=== PATIENT | male | born 1955 | race Caucasian/White ===

== ENCOUNTER → 2016-11-22 | Outpatient (CLI) | payer OTHER ==
[2016-11-22 09:44] LABS: MEAN CORPUSCULAR HEMOGLOBIN 31.6 pg (27.0-33.0); MEAN CORPUSCULAR HGB CONC 33.2 g/dl (32.0-36.5); MEAN CORPUSCULAR VOLUME 95.3 fl (80.0-96.0); RED CELL DISTRIBUTION WIDTH 12.6 % (11.5-14.5); WHITE BLOOD COUNT 4.9 K/mm3 (4.0-10.0)
[2016-11-22 10:36] LABS: ALBUMIN 3.2 GM/DL (3.2-5.2); ALBUMIN/GLOBULIN RATIO 0.73 (1.00-1.93); ALKALINE PHOSPHATASE 81 U/L (45-117); ALT/SGPT 23 U/L (12-78); ANION GAP 7 MEQ/L (8-16); AST/SGOT 17 U/L (15-37); BILIRUBIN,TOTAL 0.5 MG/DL (0.2-1.0); BLOOD UREA NITROGEN 11 MG/DL (7-18); CALCIUM LEVEL 8.7 MG/DL (8.8-10.2); CARBON DIOXIDE LEVEL 30 MEQ/L (21-32); CHLORIDE LEVEL 103 MEQ/L (98-107); CHOLESTEROL LEVEL 176 MG/DL (<200); CREATININE FOR GFR 0.96 MG/DL (0.70-1.30); GLOMERULAR FILTRATION RATE > 60.0 (>49); GLUCOSE, FASTING 108 MG/DL (80-110); POTASSIUM SERUM 4.4 MEQ/L (3.5-5.1); SODIUM LEVEL 140 MEQ/L (136-145); TOTAL PROTEIN 7.6 GM/DL (6.4-8.2); TRIGLYCERIDES LEVEL 117 MG/DL (<150)
== END ==
LOC: M WUC 08:22
PROVIDERS: ATTEND Family Medicine
DX: Z00.00 Encounter for general adult medical examination without abnormal findings (principal); N40.0 Benign prostatic hyperplasia without lower urinary tract symptoms

== ENCOUNTER → 2016-11-28 | Outpatient (CLI) | payer OTHER ==
--- NOTE | 2016-11-28 10:35 | REP ---
Chest two views HISTORY: Cough Comparison: 02/16/2011 The lungs are clear. The heart is normal in size. The pulmonary vasculature is normal in appearance. Degenerative change is present in the thoracic spine. IMPRESSION: No acute disease. Signed by Alec Herrera MD 11/28/2016 10:26 A
== END ==
LOC: M WUC 10:06
PROVIDERS: ATTEND Family Medicine
DX: R05 Cough (principal)

== ENCOUNTER → 2019-06-18 | Outpatient (REF) | payer MEDICARE ==
[2019-06-18 12:13] LABS: BLOOD UREA NITROGEN 19 MG/DL (7-18); CARBON DIOXIDE LEVEL 28 MEQ/L (21-32); CHLORIDE LEVEL 99 MEQ/L (98-107); CREATININE FOR GFR 1.19 MG/DL (0.70-1.30); GLOMERULAR FILTRATION RATE > 60.0 (>49); GLUCOSE, FASTING 176 MG/DL (70-100); POTASSIUM SERUM 4.5 MEQ/L (3.5-5.1); SODIUM LEVEL 134 MEQ/L (136-145)
[2019-06-18 12:57] LABS: HEMOGLOBIN A1c 8.1 %
== END ==
LOC: M LABDRAW1 09:30
PROVIDERS: ATTEND Family Medicine
DX: R81 Glycosuria (principal)

== ENCOUNTER → 2019-07-08 | Outpatient (CLI) | payer MEDICARE, BC ==
[2019-07-08 14:34] LABS: BACTERIA, URINE AUTO NEGATIVE (NEGATIVE); MUCUS, URINE SMALL (NEGATIVE); RBC, URINE AUTO 1 /HPF (0-3); SQUAMOUS EPITHELIAL CELL UR AU 0 /HPF (0-6); WBC, URINE AUTO 1 /HPF (0-3)
[2019-07-11 00:07] LABS: PSA % FREE 22.2 % (.); PSA FREE 1.09 ng/mL; PSA TOTAL 4.9 ng/mL (0.0-4.0)
== END ==
LOC: M SMT 11:52
PROVIDERS: ATTEND Specialist
DX: N40.1 Benign prostatic hyperplasia with lower urinary tract symptoms (principal); Z28.21 Immunization not carried out because of patient refusal
CPT/HCPCS: 36415; 51798; 81015; 84154; 87086; G0463

== ENCOUNTER 2019-08-06 04:34 | Emergency (ER) | payer MEDICARE, BC ==
[~2019-08-06] VITALS: Ht 182.9 cm; Wt 116.4 kg
[2019-08-06] MEDS ORDERED: LISI20TA20 (05:16)
[2019-08-06] MEDS ORDERED: LATANOPROST (05:16)
[2019-08-06] MEDS ORDERED: ATOR1TAB21 (05:16)
[2019-08-06] MEDS ORDERED: METF-791 (05:16)
[2019-08-06] MEDS ORDERED: DUTA1CAP (05:16)
[2019-08-06] MEDS ORDERED: TAMS1CAP17 (05:16)
[2019-08-06 05:43] LABS: HEMATOCRIT 38.3 % (42.0-52.0); HEMOGLOBIN 12.4 g/dl (13.5-17.5); MEAN CORPUSCULAR HEMOGLOBIN 31.2 pg (27.0-33.0); MEAN CORPUSCULAR HGB CONC 32.4 g/dl (32.0-36.5); MEAN CORPUSCULAR VOLUME 96.5 fl (80.0-96.0); PLATELET COUNT, AUTOMATED 364 10^3/uL (150-450); RED BLOOD COUNT 3.97 10^6/uL (4.30-6.10); WHITE BLOOD COUNT 6.3 10^3/uL (4.0-10.0)
[2019-08-06 06:11] LABS: ERYTHROCYTE SEDIMENTATION RATE 44 mm/hr (0-20)
--- NOTE | 2019-08-06 13:10 | REP ---
MRI brain: 08/06/2019. Indication: Numbness and paresthesia. Comparison: None. Technique: Multiplanar short and long TR sequences of the brain were obtained without IV Gadolinium. Findings: There are no areas of restricted diffusion. There is no intracranial mass effect, hydrocephalus or significant hemorrhage. The large intracranial flow voids are unremarkable. There are a few small scattered foci of elevated T2 signal within the cerebral hemisphere white matter most consistent with chronic small vessel disease. The midline structures, and craniocervical junction are unremarkable. Impression: No acute intracranial process. 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 Electronically Signed by Paul Branham DO 08/06/2019 01:02 P
[2019-08-06 13:54] VITALS: BP 134/78
== END 2019-08-06 13:55 | disposition home or self-care (01) ==
LOC: M ED 04:34
DX: R20.2 Paresthesia of skin (principal); E11.9 Type 2 diabetes mellitus without complications; N40.0 Benign prostatic hyperplasia without lower urinary tract symptoms; Z79.899 Other long term (current) drug therapy; Z79.84 Long term (current) use of oral hypoglycemic drugs; Z88.0 Allergy status to penicillin

== ENCOUNTER → 2019-10-22 | Outpatient (REF) | payer MEDICARE, BC ==
[~2019-10-22] MED LIST: ATOR1TAB21; DUTA1CAP2; LATANOPROST; LISI20TA20; METF-791; TAMS1CAP17
[2019-10-22 14:15] LABS: BASO % 0.2 % (0.0-1.0); HEMOGLOBIN 12.3 g/dl (13.5-17.5); LYMPH # 1.5 10^3/uL (1.5-5.0); LYMPH % 16.5 % (24.0-44.0); MEAN CORPUSCULAR HGB CONC 32.4 g/dl (32.0-36.5); MEAN CORPUSCULAR VOLUME 95.7 fl (80.0-96.0); MONO # 0.6 10^3/uL (0.0-0.8); MONO % 6.2 % (0.0-5.0); NEUTROPHILS % 76.8 % (36.0-66.0); PLATELET COUNT, AUTOMATED 374 10^3/uL (150-450); RED BLOOD COUNT 3.97 10^6/uL (4.30-6.10); WHITE BLOOD COUNT 9.1 10^3/uL (4.0-10.0)
[2019-10-22 14:26] LABS: ALBUMIN 3.4 GM/DL (3.2-5.2); ALT/SGPT 22 U/L (12-78); BILIRUBIN,TOTAL 0.4 MG/DL (0.2-1.0); BLOOD UREA NITROGEN 24 MG/DL (7-18); CALCIUM LEVEL 9.1 MG/DL (8.8-10.2); CARBON DIOXIDE LEVEL 31 MEQ/L (21-32); CHLORIDE LEVEL 103 MEQ/L (98-107); CREATININE FOR GFR 1.03 MG/DL (0.70-1.30); GLOMERULAR FILTRATION RATE > 60.0 (>49); GLUCOSE, FASTING 99 MG/DL (70-100); POTASSIUM SERUM 4.2 MEQ/L (3.5-5.1); RHEUMATOID FACTOR QUANT < 10.0 IU/ML (<15.0); SODIUM LEVEL 136 MEQ/L (136-145); THYROID STIMULATING HORMONE 0.925 uIU/ML (0.358-3.740); TOTAL 25(OH) VITAMIN D 33.6 NG/ML (30.0-100.0); TOTAL PROTEIN 7.7 GM/DL (6.4-8.2); VITAMIN B12 LEVEL 553 PG/ML
[2019-10-22 14:30] LABS: HEMOGLOBIN A1c 6.4 %
[2019-10-22 14:33] LABS: ERYTHROCYTE SEDIMENTATION RATE 30 mm/hr (0-20)
[2019-10-23 09:07] LABS: ALBUMIN 3.81 GM/DL (3.29-5.55); ALBUMIN % 49.5 % (55.8-66.1); ALPHA-1-GLOBULIN % 4.5 % (2.9-4.9); ALPHA-1-GLOBULINS 0.35 GM/DL (0.17-0.41); ALPHA-2-GLOBULINS 0.75 GM/DL (0.42-0.99); ALPHA-2-GLOBULINS % 9.8 % (7.1-11.8); BETA-1-GLOBULINS 0.42 GM/DL (0.28-0.60); BETA-1-GLOBULINS % 5.5 % (4.7-7.2); BETA-2-GLOBULINS 0.27 GM/DL (0.19-0.55); BETA-2-GLOBULINS % 3.5 % (3.2-6.5); GAMMA GLOBULIN % 27.2 % (11.1-18.8); GAMMA GLOBULINS 2.09 GM/DL (0.65-1.58)
== END ==
LOC: M LABDRAW1 13:11
PROVIDERS: ATTEND Psychiatry & Neurology Neurology
DX: G62.9 Polyneuropathy, unspecified (principal); E11.9 Type 2 diabetes mellitus without complications; Z79.899 Other long term (current) drug therapy

== ENCOUNTER → 2019-10-22 | Outpatient (REF) | payer MEDICARE, BC ==
[2019-10-22 14:17] LABS: CHOLESTEROL RISK RATIO 2.525 (<5)
== END ==
LOC: M LABDRAW1 13:14
PROVIDERS: ATTEND Family Medicine
DX: E11.9 Type 2 diabetes mellitus without complications (principal)

== ENCOUNTER 2019-10-29 03:47 | Emergency (ER) | payer MEDICARE, BC ==
[~2019-10-29] VITALS: Ht 182.9 cm; Wt 110.0 kg
[2019-10-29 03:47] VITALS: BP 136/76
[2019-10-29] MEDS ORDERED: methylPREDNISolone INJ 125 MG/2 ML VIAL (J2930) IM ONE (04:15)
[2019-10-29] MEDS ORDERED: PRED20TA PO (04:19)
== END 2019-10-29 05:04 | disposition home or self-care (01) ==
LOC: M ED 03:47
DX: R22.0 Localized swelling, mass and lump, head (principal); T78.3XXA Angioneurotic edema, initial encounter; X58.XXXA Exposure to other specified factors, initial encounter; Y92.89 Other specified places as the place of occurrence of the external cause; E11.9 Type 2 diabetes mellitus without complications; I10 Essential (primary) hypertension; E78.5 Hyperlipidemia, unspecified; N40.0 Benign prostatic hyperplasia without lower urinary tract symptoms; Z79.899 Other long term (current) drug therapy; Z79.84 Long term (current) use of oral hypoglycemic drugs; Z88.0 Allergy status to penicillin; Z88.8 Allergy status to other drugs, medicaments and biological substances
CPT/HCPCS: 96372; 99282; J2930

== ENCOUNTER → 2020-01-09 | Outpatient (CLI) | payer MEDICARE, BC ==
[~2020-01-09] MED LIST changes: -METF-791; +METF-838; +PRED20TA PO
[2020-01-10 14:16] LABS: PSA TOTAL 1.5 ng/mL (0.0-4.0)
== END ==
LOC: M WUC 10:51
PROVIDERS: ATTEND Specialist
DX: R97.20 Elevated prostate specific antigen [PSA] (principal)

== ENCOUNTER → 2020-02-04 | Outpatient (CLI) | payer MEDICARE, BC ==
[~2020-02-04] MED LIST changes: +ISOVUE-370 76% 100ML VIAL As Ordered ONE
--- NOTE | 2020-02-04 16:34 | REPVR ---
PROCEDURE INFORMATION: Exam: CT Lumbar Spine With Contrast Exam date and time: 02/04/2020 3:15 PM Age: 64 years old Clinical indication: Other: Dysplasia; Additional info: Lumbar fibrous dysplasia TECHNIQUE: Imaging protocol: Computed tomography images of the lumbar spine with intravenous contrast. Radiation optimization: All CT scans at this facility use at least one of these dose optimization techniques: automated exposure control; mA and/or kV adjustment per patient size (includes targeted exams where dose is matched to clinical indication); or iterative reconstruction. Contrast material: ISOVUE 370; Contrast volume: 100 ml; Contrast route: IV; COMPARISON: MRI-Spine, L.S. without con 10/02/2013 7:39 AM FINDINGS: Vertebrae: Expansile, hypodense lesion of the left L3 pedicle extending into the articular pillar and transverse process. There are areas of cortical dehiscence. No gross evidence of an adjacent soft tissue component. No correlative lesion is identified on the MRI lumbar spine of 10/02/2013. Differential considerations are metastasis, myelomatous lesion or giant cell tumor. There is a 6 mm lucent lesion in the left posterior aspect of L1. A 3 mm lucent lesion in the left aspect of T12. No high-grade disc height loss. Mild posterior disc height loss with endplate osteophytic ridging at L5-S1. There is mild lower lumbar prevertebral spondylosis. L1-L2: No significant disc protrusion. No severe spinal canal stenosis. No significant neural foraminal narrowing. L2-L3: No significant disc protrusion. No spinal canal stenosis. No neural foraminal narrowing. L3-L4: Mild facet arthropathy. No stenoses. L4-L5: Mild disc bulge as well as mild to moderate facet arthropathy and ligamentum flavum buckling. The central spinal canal remains patent. Lateral recess and neural foraminal stenoses are mild. L5-S1: Mild disc osteophyte complex and facet arthropathy. No stenoses. Mediastinum: Small hiatal hernia. Kidneys and ureters: The right kidney demonstrates an approximate 0.8 cm likely simple cyst. Vasculature: The aorta demonstrates atherosclerosis. No evidence of aortic aneurysm or dissection. Soft tissues: Unremarkable. IMPRESSION: Indeterminate, expansile lesion of the left L3 pedicle extending into the articular pillar and transverse process. This appears to be new since the prior MRI of 10/02/2013 concerning for neoplasm. Nuclear medicine bone scan is recommended for further evaluation. THIS REPORT CONTAINS FINDINGS THAT MAY BE CRITICAL TO PATIENT CARE. The findings were verbally communicated via telephone conference with Dr. Ryder at 4:22 PM EDT on 02/04/2020. The patient had an MRI lumbar spine without contrast on 12/26/2019 and an MRI lumbar spine with contrast on 01/20/2020, the L3 lesion was demonstrated with enhancement on the postcontrast imaging. Electronically signed by: Bere Gonzalez On 02/04/2020 16:33:55 PM
== END ==
LOC: M RAD 14:44
PROVIDERS: ATTEND Psychiatry & Neurology Neurology
DX: M85.08 Fibrous dysplasia (monostotic), other site (principal)
CPT/HCPCS: 72132; Q9967

== ENCOUNTER → 2020-05-11 | Outpatient (CLI) | payer MEDICARE, BC ==
[~2020-05-11] MED LIST changes: -ATOR1TAB21; +ATOR1TAB21 PO; +DEXA4TA PO; -DUTA1CAP2; +DUTA1CAP2 PO; +EYEPROMISE RESTORE PO; -ISOVUE-370 76% 100ML VIAL As Ordered ONE; -LATANOPROST; +LATANOPROST OU; +LOSA100T5 PO; -METF-838; +METF-838 PO; +REVL20CA PO; +SYST1SOL OU; -TAMS1CAP17; +TAMS1CAP17 PO
--- NOTE | 2020-06-02 09:35 | REP ---
PET CT HISTORY: L3 plasmacytoma. COMPARISON: CT study lumbar spine 02/04/2020. MRI study lumbar spine 01/20/2020. MRI lumbar spine 10/02/2013. PET CT TECHNIQUE: 50 minutes following the intravenous injection of an 8.32 mCi dose of F18 fluorodeoxyglucose (FDG), PET CT 3D imaging is acquired from the skull base to the proximal thighs. PET CT FINDINGS: The expansile lesion in the left posterior elements of the L3 vertebral body shows mildly increased metabolic uptake. Maximum standard uptake value is 4.0. The lesion is unchanged from recent imaging studies. It is new from the 2014 study. No other metabolically active skeletal activity is seen. Head and neck soft tissues are unremarkable. No abnormal hypermetabolic uptake is seen in the thorax. Bilateral hip replacements are noted. No abnormal hypermetabolic uptake is seen in the abdomen or pelvis. No other bony lesion. IMPRESSION: Mildly increased metabolic activity in the expansile lesion in the left side of the L3 vertebral body, maximum standard uptake value (SUV) value 4.0. No other bony lesion is appreciated. Otherwise negative PET scintigraphy. MTDD
== END ==
LOC: M PLARAD 14:27
PROVIDERS: ATTEND Specialist
DX: C90.30 Solitary plasmacytoma not having achieved remission (principal)
CPT/HCPCS: 78815; A9552

== ENCOUNTER → 2020-07-15 | Outpatient (CLI) | payer MEDICARE, BC ==
--- NOTE | 2020-07-15 15:13 | RADONC.CN ---
Radiation Oncology Hx/Consult Radiation Oncology Consult Date of Service: Jul 15, 2020 Pt Identifier Tyrel Vences is a 64 year old male with recently diagnosed multiple myeloma discovered incidentally as he was undergoing workup for peripheral neuropathy he had a lumbar spine MRI showing a lesion in the left L3 transverse process which was biopsied and returned plasmacytoma. He underwent staging PET-CT revealing this as the only skeletal lesion. He is He had BM biopsy which showed 12% infiltration by plasma cells and high-risk cytogenetics. He is R-ISS stage II. He had a consultation at [facility] and has decided to proceed with systemic therapy (RKD) which will be administered by Dr. Crow here. He is seen today for consideration of RT to the L3 lesion. Diagnosis/Treatment History Oncologic History As above Interval History Feels generally well. Neuropathy is stable symmetrical involving fingers and toes. He notes some low back pain BL aching when he sits for long periods. This is a more recent development per his . He denies shooting pains in the legs, or aching in the buttocks with this. He has no motor weakness, bowel or bladder symptoms. He has preserved appetite and stable weight. No nausea or vomiting. 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 Prov:GEENA CROW MD 07/08/20 Reported Medications Propylene Glycol/Peg 400 (Systane 0.3-0.4% Eye Drops) 15 Ml Drops, 1 DROP OU QID, BOTTLE 07/09/20 [Eyepromise Restore] No Conflict Check, 2 CAP PO DAILY 07/09/20 Losartan/Hydrochlorothiazide (Losartan-Hctz 100-25 mg Tab) 1 Each Tablet, 1 TAB PO QPM 03/09/20 [Latanoprost] No Conflict Check, 1 DROP OU QHS 08/06/19 Atorvastatin Calcium (Atorvastatin Calcium) 20 Mg Tablet, 1 TAB PO DAILY 08/06/19 Dutasteride (Dutasteride) 0.5 Mg Capsule, 1 CAP PO DAILY 08/06/19 Metformin HCl (Metformin HCl ER) 500 Mg Tab.er.24h, 1 TAB PO QPM 08/06/19 Tamsulosin Hcl (Tamsulosin HCl) 0.4 Mg Capsule, 1 CAP PO DAILY 08/06/19 Review of Systems Constitutional: Denies: Chills, Fever, Night Sweats Eyes: Denies: Pain, Vision change HEENT: Denies: Head Aches, Dysphagia, Sore Throat Skin: Denies: Rash, Lesions, Bruising Pulmonary: Denies: Dyspnea, Cough Cardiovascular: Denies: Chest Pain, Palpitations, Edema Gastrointestinal: Denies: Nausea, Vomiting, Abdominal Pain, Diarrhea Genitourinary: Denies: Dysuria, Frequency, Incontinence Hematologic: Denies: Bruising, Petecchia, Enlarged Lymph Nodes Musculoskeletal: Reports: Back pain; Denies: Neck pain, Shoulder pain, Joint pain Neurological: Reports: Numbness; Denies: Weakness Psych: Reports: Mood Normal; Denies: Anxiety Vital Signs Ht 72" Wt 255 lb T 97.2 P 68 RR 18 BP 148/87 O2 98% Pain 0 Fatigue 1 General Exam: Positive: Alert, Cooperative, No Acute Distress Eye Exam: Positive: PERRLA, EOMI ENT EXAM: Positive: Mucous membr. moist/pink, Pharynx Normal Neck Exam: Negative: Thyromegaly, Lymphadenopathy Chest Exam: Positive: Normal air movement; Negative: Rales, Rhonchi, Wheezing Heart Exam: Positive: Rate Normal, Regular Rhythm Abdomen Exam: Positive: Soft; Negative: Tenderness, Mass Extremity Exam: Negative: Edema, Tenderness Skin Exam: Positive: Nl turgor and temperature; Negative: Rash Neuro Exam: Positive: Normal Gait, Normal Speech, Cranial Nerves 3-12 NL Psych Exam: Positive: Mental status NL, Mood NL, Memory Intact Other Physical Findings Musculoskeletal: There is no spinal or paraspinal tenderness at L3 level, there is point tenderness over the upper sacrum and SI joints BL Diagnostic and Laboratory Diagnostic Review Radiologic images, relevant labs and pathology reports were personally reviewed and discussed with Mr. Vences. Assessment and Plan Impression Mr. Vences is a 64 year old male with a history of multiple myeloma discovered incidentally as he was undergoing workup for peripheral neuropathy he had a lumbar spine MRI showing a lesion in the left L3 transverse process which was biopsied and returned plasmacytoma. He underwent staging PET-CT revealing this as the only skeletal lesion. He is He had BM biopsy which showed 12% infiltration by plasma cells and high-risk cytogenetics. He is R-ISS stage II. He had a consultation at [facility] and has decided to proceed with systemic therapy (RKD) which will be administered by Dr. Crow here. He is seen today for consideration of RT to the L3 lesion. Stage R-ISS stage II Performance Status ECOG 0 Plan We had an extensive discussion with Mr. Vences regarding the diagnosis at hand and available therapeutic options. He has antecedent exposure to pesticides early in his working life, which is a known risk factor for multiple myeloma. He is very well overall and about to embark on systemic therapy. I am not convinced that his low back pain is entirely due to the L3 lesion, however it is a possible contributor. We discussed that palliative radiation to the lesion (his only known skeletal lesion) would likely result in durable local control there and be prophylactic against any pathologic fracture in the future. It may also help with pain. It will not however alter his prognosis. Conversely, RT also will not interfere with his systemic therapy or prospects of SCT later on, and so is reasonable to consider at this time. He expressed desire to proceed with treatment. I would give 30 Gy in 10 fractions to the site. Possible side effects including fatigue and diarrhea were discussed with the patient, these would be mild and self limited. We discussed the logistics of receiving radiation therapy in detail including the need for a 1-time planning session. After discussing the risks, benefits and alternatives to radiation therapy, Mr. Vences was amenable to pursuing radiotherapy. All questions were answered to the patient's satisfaction. We instructed the patient that if there were any questions,concerns or changes in clinical status in the interim to contact us. Recommendations Palliative RT to the solitary L3 lesion 30 Gy in 10 fractions Simulation in the coming week JOY JORGENSEN MD Jul 15, 2020 15:13
== END ==
LOC: M ONCR 12:47
PROVIDERS: ATTEND General Practice
DX: C90.30 Solitary plasmacytoma not having achieved remission (principal)

== ENCOUNTER 2020-07-22 10:29 | Outpatient (RCR) | payer MEDICARE, BC ==
[2020-07-27] MEDS ORDERED: ACYC400T PO (08:14)
== END 2020-08-02 ==
LOC: M ONCR 10:29
PROVIDERS: ATTEND General Practice
DX: C90.00 Multiple myeloma not having achieved remission (principal)

== ENCOUNTER 2020-08-16 10:23 | Outpatient (RCR) | payer MEDICARE, BC ==
[~2020-08-16 10:23] MED LIST changes: +ACYC400T PO; +ALPR2TAB3 PO; +BACT800T5 PO
[2020-08-16] MEDS ORDERED: REVL20CA PO (10:33)
[2020-08-19] MEDS ORDERED: ACYC400T PO (12:24)
[2020-08-24] MEDS ORDERED: ACYC400T PO (09:32)
[2020-08-24] MEDS ORDERED: TRAZ-252 PO (14:55)
== END 2020-09-02 ==
LOC: M ONCR 10:23
PROVIDERS: ATTEND General Practice
DX: C90.00 Multiple myeloma not having achieved remission (principal)

== ENCOUNTER → 2020-09-16 | Outpatient (CLI) | payer MEDICARE, BC ==
[~2020-09-16] MED LIST changes: +LIDOCAINE 1% MDV 20ML VIAL As Ordered ONE; +MIDAZOLAM INJ 2MG/2ML VIAL (J2250 PER 1MG) As Ordered ONE; +TRAZ-252 PO; +VANCOMYCIN 500MG/10ML VIAL As Ordered ONE; +ceFAZolin 1GM VIAL (J0690 PER 500MG) As Ordered ONE; +diphenhydrAMINE 50MG/ML VIAL (J1200) As Ordered ONE; +fentaNYL 100 MCG/2 ML INJECTION (J3010) As Ordered ONE
--- NOTE | 2020-09-16 13:14 | IRHP ---
[facility] IR Pre-Procedure H & P General Date of Service: Sep 16, 2020 Procedure: Same Day Surgery Interval History and Physical I have seen the patient and reviewed last H & P performed within 30 days. There is no significant interval change. History of Present Illness Chief Complaint The patient is a 64-year-old male admitted with a reason for visit of Multiple Myeloma. PRE-PROCEDURE DIAGNOSIS: multiple myeloma HEART: normal rate. LUNGS: normal breathing at rest. ASA Classification ASA Classification: III-Severe systemic dis. Mallampati Score: II NPO: Yes Problems with prior sedation: No Obstructive Sleep Apnea: No Plan moderate sedation Allergies Coded Allergies: Penicillins (Verified Allergy, Intermediate, HIVES, 10/29/19) lisinopril (Verified Allergy, Unknown, 10/29/19) Home Medications Scheduled Acyclovir (Acyclovir), 400 MG PO BID Atorvastatin Calcium (Atorvastatin Calcium), 1 TAB PO DAILY, (Reported) Dexamethasone (Dexamethasone), 10 TAB PO ASDIRECTED Dutasteride (Dutasteride), 1 CAP PO DAILY, (Reported) Lenalidomide (Revlimid), 1 CAP PO DAILY Losartan/Hydrochlorothiazide (Losartan-Hctz 100-25 mg Tab), 1 TAB PO QPM, (Reported) Metformin HCl (Metformin HCl ER), 1 TAB PO QPM, (Reported) Propylene Glycol/Peg 400 (Systane 0.3-0.4% Eye Drops), 1 DROP OU QID, (Reported) Tamsulosin Hcl (Tamsulosin HCl), 1 CAP PO DAILY, (Reported) Trazodone HCl (Trazodone HCl), 50 MG PO QPM [Eyepromise Restore], 2 CAP PO DAILY, (Reported) [Latanoprost], 1 DROP OU QHS, (Reported) VS, I&O, 24H, Fishbone Vital Signs/I&O Vital Signs Date Time Temp Pulse Resp B/P (MAP) Pulse Ox O2 Delivery O2 Flow Rate FiO2 09/16/20 12:10 97.5 51 18 100 Room Air MARIO TANG MD Sep 16, 2020 13:14
[2020-09-16 14:50] VITALS: BP 143/73
--- NOTE | 2020-09-16 16:06 | POST-OPPD ---
Postoperative Procedure Note Date Of Procedure: Sep 16, 2020 Time Of Procedure: 16:04 IR ultrasound and fluoroscopy guided port placement IR Ultrasound of the neck. IR Moderate sedation. Clinical indication: Multiple myeloma. Physician: Dr. Gonzalez. Procedure: The patient was advised of the benefits, risks, and alternatives of the procedure and informed consent was obtained. A time-out was performed with verification of the patient's name, MRN, site of procedure and type of procedure to be performed. The patient was positioned in the supine position on the angiographic table. The site was prepped and draped in the usual sterile fashion. Moderate sedation was performed by the physician including the presence of an independent trained RN who assisted and monitored the patient's level of consciousness and physiologic status. Following the administration of fentanyl and Versed , the physician spent 45 minutes of continuous face to face time with the patient. Ultrasound of the neck reveals a patent and compressible right internal jugular vein. A rivet heater radiograph reveals no gross abnormality. The neck and anterior chest wall were anesthetized with lidocaine. The right internal jugular vein was accessed using a microintroducer needle under ultrasound guidance, via a lateral approach. An 018 wire was advanced into the superior vena cava, the needle was removed and a microsheath was placed. An Amplatz wire was then passed into the inferior vena cava. An incision at the internal jugular vein access site and anterior chest wall were made using a scalpel. An incision was made at the anterior chest wall. A small pocket was created using a combination of blunt and sharp dissection. A tunneling device was then used to pass the catheter from the pocket to the neck puncture site. An 8- [employer] Smart power port was then positioned in the pocket. The catheter was then measured and cut. The introducer sheath was exchanged for a peel-away sheath. The catheter was passed through the peel-away sheath into the internal jugular vein and the peel-away sheath was removed. The port tip was positioned at the cavoatrial junction. The port was then accessed with a Polo needle. The port flushes and aspirates well. The puncture site in the neck was closed. The chest wall incision was then closed with 2-0 Vicryl and 4-0 Monocryl. Glue and Steri- Strips were applied. A sterile dressing was then applied. The patient tolerated the procedure well and was returned to the PRU in stable condition. Estimated blood loss: <5 ml. Complications: None. Conclusion: 1. Successful placement of an 8-[employer] Smart power port via the right internal jugular vein. The port is ready for immediate use. 2. Patient to follow up in IR clinic in 2 weeks. Thank you for this referral. MARIO GONZALEZ MD Sep 16, 2020 16:06
== END ==
LOC: M IRPRO 11:38
PROVIDERS: ATTEND Specialist
DX: C90.00 Multiple myeloma not having achieved remission (principal)
CPT/HCPCS: 36561; 99152; 99153; C1769; C1788; C1894; J0690; J1642; J1644; J2250; J3010; J3370

== ENCOUNTER → 2020-10-05 | Outpatient (POV) | payer MEDICARE, BC ==
[~2020-10-05] MED LIST changes: -LIDOCAINE 1% MDV 20ML VIAL As Ordered ONE; -MIDAZOLAM INJ 2MG/2ML VIAL (J2250 PER 1MG) As Ordered ONE; -VANCOMYCIN 500MG/10ML VIAL As Ordered ONE; -ceFAZolin 1GM VIAL (J0690 PER 500MG) As Ordered ONE; -diphenhydrAMINE 50MG/ML VIAL (J1200) As Ordered ONE; -fentaNYL 100 MCG/2 ML INJECTION (J3010) As Ordered ONE
--- NOTE | 2020-10-07 14:42 | IRPN ---
[facility] [place] IR Progress Note IR Progress Note DATE: Oct 05, 2020 Patient agreed to this telephone follow-up. I spent 5 minutes talking to the patient. FOLLOW-UP: Status post port placement. Patient states he is doing well, the port has been used without any issues. He denies fevers, chills, pain, redness or discharge at site. He did suffer a rash on his chest that he thinks may have been from the chlorhexidine. ON EXAMINATION: Patient sent pictures of the port site. Port site appears to be healing well. No redness, swelling or discharge. IMPRESSION: Doing well status post port placement. No further follow-up scheduled unless initiated by patient and/or referring provider. Thank you for this referral Allergies Coded Allergies: Penicillins (Verified Allergy, Intermediate, HIVES, 10/29/19) lisinopril (Verified Allergy, Unknown, 10/29/19) MARIO TANG MD Oct 07, 2020 14:42
== END ==
LOC: M TMIRPOV 09:23
PROVIDERS: ATTEND Radiology Diagnostic Radiology
DX: Z45.2 Encounter for adjustment and management of vascular access device (principal); Z88.0 Allergy status to penicillin; Z88.8 Allergy status to other drugs, medicaments and biological substances

== ENCOUNTER → 2021-03-16 | Outpatient (REF) | payer MEDICARE, BC ==
[~2021-03-16] MED LIST changes: +ACYC1TAB PO; -ACYC400T PO; +ASPI81CH33 PO; +ATOV5SUS PO; +AVOD0.5C PO; +BACTDSTA PO; +CLON0.5T17 PO; +COLA100C5 PO; +CRAMP DEFENSE PO; +DOXY100C PO; +ERGO500029 PO; +HYDR12.55 PO; +LEVOTAB10 PO; +LOSA100T50 PO; +META0.52 PO; +Trazodone PO; +XALA0.007 OU; +[UNRECOGNIZED DRUG - OTHER] PO
== END ==
LOC: M LAB REF 12:49
PROVIDERS: ATTEND Nurse Practitioner Women's Health
DX: R97.20 Elevated prostate specific antigen [PSA] (principal)

== ENCOUNTER → 2021-05-02 | Outpatient (REF) | payer MEDICARE, BC ==
[~2021-05-02] MED LIST changes: +B-122500 PO; +COVI100V IM; -DOXY100C PO; +DOXY100C3 PO; +EYE PROMISE RESTORE PO; +REVL10CA2 PO; +SYSTANE BALANCE OU; +[UNRECOGNIZED DRUG - OTHER] PO
[2021-05-02 16:00] LABS: HEMOGLOBIN A1c 6.4 %
== END ==
LOC: M LAB REF 13:29
PROVIDERS: ATTEND Family Medicine
DX: E11.9 Type 2 diabetes mellitus without complications (principal)

== ENCOUNTER → 2021-07-11 | Outpatient (CLI) | payer MEDICARE, BC ==
[~2021-07-11] MED LIST changes: +ALBU8.5H; +BACL10TA2 PO; +DELS1LIQ3 PO
--- NOTE | 2021-07-11 16:45 | REP ---
INDICATION: PAIN RIGHT SHOULDER. COMPARISON: 01/17/2019 TECHNIQUE: PA and lateral FINDINGS: Since the last examination a MediPort device has been placed the tip is in the superior vena cava. The cardiomediastinal silhouette is stable. The heart is not enlarged. Lung marquez are clear and stable. The pleural angles are sharp. There is no change in the osseous structures. IMPRESSION: There is no acute cardiopulmonary disease. Findings as described above. <Electronically signed by Geovany Stubbs > 07/11/21 [id number]
--- NOTE | 2021-07-11 17:06 | REP ---
INDICATION: PAIN RIGHT SHOULDER. COMPARISON: None. TECHNIQUE: Three views of the right shoulder were performed. FINDINGS: Multiple lytic lesions are seen throughout the proximal humerus. The glenohumeral relationship is within normal limits. There is AC joint DJD. A MediPort device is seen the tip of which is in the region of the superior vena cava. IMPRESSION: 1. Multiple lytic lesions in the proximal humerus. Does this patient have multiple myeloma? 2. AC joint DJD. 3. No acute fracture, dislocation, or subluxation. <Electronically signed by Geovany Stubbs > 07/11/21 [id number]
== END ==
LOC: M WUC 14:14
PROVIDERS: ATTEND Family Medicine
DX: M25.511 Pain in right shoulder (principal); M25.512 Pain in left shoulder; M19.019 Primary osteoarthritis, unspecified shoulder; M75.91 Shoulder lesion, unspecified, right shoulder

== ENCOUNTER → 2021-07-18 | Outpatient (CLI) | payer MEDICARE, BC ==
--- NOTE | 2021-07-18 12:05 | REP ---
INDICATION: PAIN. COMPARISON: None. TECHNIQUE: AP, lateral, swimmer's views of the cervical spine. FINDINGS: Alignment is maintained. There is no evidence for acute fracture/compression injury or subluxation. Advanced multilevel degenerative changes include osteophytosis, endplate sclerosis with disc space narrowing. Prevertebral soft tissues are normal. IMPRESSION: Advanced multilevel spondylosis. <Electronically signed by Nicolas Arceo > 07/18/21 [id number]
--- NOTE | 2021-07-18 12:24 | REP ---
INDICATION: PAIN COMPARISON: 07/11/2021 TECHNIQUE: Internal rotation, external rotation, and Y view. FINDINGS: There has been nose change since the recent prior examination. Osteophytosis and degenerative changes primarily noted at the acromioclavicular joint along with subtle sclerosis and blunting to the glenoid rim are again noted. The subacromial space is normal. There is no evidence for acute fracture or dislocation. Known lytic lesions throughout the visualized proximal humerus consistent with the given history of plasmacytoma. IMPRESSION: Moderate arthritic degenerative changes. Stable lytic lesions. No acute fracture or dislocation. <Electronically signed by Nicolas Arceo > 07/18/21 [id number]
== END ==
LOC: M WUC 11:36
PROVIDERS: ATTEND Specialist
DX: M25.511 Pain in right shoulder (principal); M19.011 Primary osteoarthritis, right shoulder; M75.90 Shoulder lesion, unspecified, unspecified shoulder; M47.812 Spondylosis without myelopathy or radiculopathy, cervical region; M47.814 Spondylosis without myelopathy or radiculopathy, thoracic region; M47.816 Spondylosis without myelopathy or radiculopathy, lumbar region

== ENCOUNTER → 2022-07-12 | Outpatient (CLI) | payer MEDICARE, BC ==
[~2022-07-12] MED LIST changes: +K-TA10TA2 PO; -LISI20TA20; +LISI20TA37; +LORA1TAB4; +LOSA100T45 PO; -LOSA100T50 PO; +NASA1SPR NARES; +ONDA-84; +ONDA-84 PO; +PROC5TAB57; +PROC5TAB57 PO; +ZOLP5TAB PO; +[UNRECOGNIZED DRUG - OTHER]
== END ==
LOC: M LABSMTC 09:37
PROVIDERS: ATTEND Anesthesiology
DX: Z01.812 Encounter for preprocedural laboratory examination (principal); Z20.822 Contact with and (suspected) exposure to COVID-19

== ENCOUNTER → 2022-07-31 | Outpatient (CLI) | payer MEDICARE, BC ==
[~2022-07-31] MED LIST changes: +SYST0.6S OP; +VITATAB73 PO
== END ==
LOC: M RAD 14:13
PROVIDERS: ATTEND Family Medicine
DX: R91.8 Other nonspecific abnormal finding of lung field (principal)

== ENCOUNTER → 2022-08-04 | Outpatient (CLI) | payer MEDICARE, BC ==
[~2022-08-04] MED LIST changes: +BENZ200C70 PO; +CALTTAB6 PO
== END ==
LOC: M RAD 12:50
PROVIDERS: ATTEND Family Medicine
DX: R05.9 Cough, unspecified (principal)

== ENCOUNTER 2022-08-09 07:40 | Outpatient (CLI) | payer MEDICARE, BC ==
[~2022-08-09] VITALS: Ht 182.9 cm; Wt 113.0 kg
[2022-08-09 07:40] VITALS: BP 116/67
[~2022-08-09 07:40] MED LIST changes: +diphenhydrAMINE 25MG CAP PO ONE
[2022-08-09] MEDS ORDERED: ACETAMINOPHEN TAB 650MG DOSE (2X325MG) PO ONE (08:00)
[2022-08-09] MEDS ORDERED: IMMUNE GLOBULIN 10% 10 GM in IV 1 EA IV ONE (08:00)
[2022-08-09] MEDS ORDERED: IMMUNE GLOBULIN 10% 5 GM in IV 1 EA IV ONE (08:00)
[2022-08-09] MEDS ORDERED: IMMUNE GLOBULIN 10% 40 GM in IV 1 EA IV ONE (08:00)
[2022-08-09] MEDS ORDERED: FAMOTIDINE 20 MG TAB PO ONE (08:00)
[2022-08-09] MEDS ORDERED: diphenhydrAMINE 50MG/ML VIAL IV ONE (08:25)
[2022-08-09] MEDS ORDERED: SODIUM CHLORIDE 0.9% INJ 10 ML SYR IV PRN (08:30)
[2022-08-09] MEDS ORDERED: SODIUM CHLORIDE 0.9% INJ 10 ML SYR IV SCH (09:00)
[2022-08-09] MEDS ORDERED: FAMOTIDINE 20MG/2ML VIAL IV ONE (09:15)
[2022-08-09 10:15] VITALS: BP 106/66
[2022-08-09 10:45] VITALS: BP 115/73
[2022-08-09 11:15] VITALS: BP 113/70
[2022-08-09 13:00] VITALS: BP 134/81
[2022-08-14] MEDS ORDERED: K-TA10TA2 PO (10:18)
== END 2022-08-09 13:00 | disposition home or self-care (01) ==
LOC: M INFU 07:40
PROVIDERS: ATTEND Specialist
DX: D80.1 Nonfamilial hypogammaglobulinemia (principal); C90.00 Multiple myeloma not having achieved remission; Z88.0 Allergy status to penicillin; Z88.8 Allergy status to other drugs, medicaments and biological substances
CPT/HCPCS: 96365; 96366; 96375; J1100; J1200; J1459; J1642

== ENCOUNTER → 2022-08-11 | Outpatient (CLI) | payer MEDICARE, BC ==
[~2022-08-11] MED LIST changes: +ISOVUE-370 76% 100ML VIAL As Ordered ONE; -diphenhydrAMINE 25MG CAP PO ONE
== END ==
LOC: M RAD 10:09
PROVIDERS: ATTEND Family Medicine
DX: R91.8 Other nonspecific abnormal finding of lung field (principal); I70.0 Atherosclerosis of aorta; Z95.828 Presence of other vascular implants and grafts
CPT/HCPCS: 71260; Q9967

== ENCOUNTER 2022-09-06 09:30 | Outpatient (CLI) | payer MEDICARE, BC ==
[~2022-09-06] VITALS: Ht 182.9 cm; Wt 113.0 kg
[2022-09-06 09:30] VITALS: BP 100/62
[~2022-09-06 09:30] MED LIST changes: +ACETAMINOPHEN TAB 650MG DOSE (2X325MG) PO ONE; +IMMUNE GLOBULIN 10% 10 GM in IV 1 EA IV ONE; +IMMUNE GLOBULIN 10% 40 GM in IV 1 EA IV ONE; +IMMUNE GLOBULIN 10% 5 GM in IV 1 EA IV ONE; -ISOVUE-370 76% 100ML VIAL As Ordered ONE
[2022-09-06] MEDS ORDERED: diphenhydrAMINE 50MG/ML VIAL IV ONE (09:55)
[2022-09-06] MEDS ORDERED: FAMOTIDINE 20MG/2ML VIAL IV ONE (10:00)
[2022-09-06 11:45] VITALS: BP 106/66
[2022-09-06 12:15] VITALS: BP 118/66
[2022-09-06 12:45] VITALS: BP 116/68
[2022-09-06 13:15] VITALS: BP 110/70
[2022-09-06 14:30] VITALS: BP 125/74
[2022-09-06] MEDS ORDERED: SODIUM CHLORIDE 0.9% INJ 10 ML SYR IV PRN (14:45)
[2022-09-07] MEDS ORDERED: SODIUM CHLORIDE 0.9% INJ 10 ML SYR IV SCH (09:00)
== END 2022-09-06 14:30 | disposition home or self-care (01) ==
LOC: M INFU 09:30
PROVIDERS: ATTEND Specialist
DX: D80.1 Nonfamilial hypogammaglobulinemia (principal); Z88.0 Allergy status to penicillin; Z88.8 Allergy status to other drugs, medicaments and biological substances
CPT/HCPCS: 96365; 96366; 96367; J1100; J1200; J1459

== ENCOUNTER 2022-10-04 09:40 | Outpatient (CLI) | payer MEDICARE, BC ==
[~2022-10-04] VITALS: Ht 182.9 cm; Wt 113.6 kg
[2022-10-04 09:40] VITALS: BP 96/55
[2022-10-04] MEDS ORDERED: SODIUM CHLORIDE 0.9% INJ 10 ML SYR IV PRN (10:10)
[2022-10-04 10:15] VITALS: BP 102/55
[2022-10-04 10:45] VITALS: BP 104/56
[2022-10-04 11:15] VITALS: BP 102/57
[2022-10-04 12:45] VITALS: BP 106/65
[2022-10-04 13:18] VITALS: BP 121/62
[2022-10-05] MEDS ORDERED: SODIUM CHLORIDE 0.9% INJ 10 ML SYR IV SCH (09:00)
== END 2022-10-04 13:10 | disposition home or self-care (01) ==
LOC: M INFU 09:40
PROVIDERS: ATTEND Specialist
DX: D80.1 Nonfamilial hypogammaglobulinemia (principal); Z88.0 Allergy status to penicillin; Z88.8 Allergy status to other drugs, medicaments and biological substances
CPT/HCPCS: 96365; 96366; J1459; J1642

== ENCOUNTER → 2022-10-25 | Outpatient (CLI) | payer MEDICARE, BC ==
[~2022-10-25] MED LIST changes: -ACETAMINOPHEN TAB 650MG DOSE (2X325MG) PO ONE; -IMMUNE GLOBULIN 10% 10 GM in IV 1 EA IV ONE; -IMMUNE GLOBULIN 10% 40 GM in IV 1 EA IV ONE; -IMMUNE GLOBULIN 10% 5 GM in IV 1 EA IV ONE
== END ==
LOC: M SLEEP 20:00
PROVIDERS: ATTEND Physician Assistant
DX: G47.61 Periodic limb movement disorder (principal); R06.83 Snoring

== ENCOUNTER 2022-11-01 09:22 | Outpatient (CLI) | payer MEDICARE, BC ==
[~2022-11-01] VITALS: Ht 185.4 cm; Wt 113.6 kg
[2022-11-01 09:20] VITALS: BP 102/59
[~2022-11-01 09:22] MED LIST changes: +ACETAMINOPHEN TAB 650MG DOSE (2X325MG) PO ONE; +FAMOTIDINE 20MG/2ML VIAL IV ONE; +IMMUNE GLOBULIN 10% 10 GM in IV 1 EA IV ONE; +IMMUNE GLOBULIN 10% 40 GM in IV 1 EA IV ONE; +IMMUNE GLOBULIN 10% 5 GM in IV 1 EA IV ONE; +SODIUM CHLORIDE 0.9% INJ 10 ML SYR IV SCH; +diphenhydrAMINE 50MG/ML VIAL IV ONE
[2022-11-01 11:15] VITALS: BP 115/62
[2022-11-01 11:45] VITALS: BP 105/58
[2022-11-01 13:00] VITALS: BP 126/70
[2022-11-01 13:50] VITALS: BP 127/72
== END 2022-11-01 14:00 | disposition home or self-care (01) ==
LOC: M INFU 09:22
PROVIDERS: ATTEND Specialist
DX: C90.00 Multiple myeloma not having achieved remission (principal); D80.1 Nonfamilial hypogammaglobulinemia; Z88.0 Allergy status to penicillin; Z88.8 Allergy status to other drugs, medicaments and biological substances
CPT/HCPCS: 96365; 96366; 96375; J1100; J1200; J1459; J1642

== ENCOUNTER → 2022-11-22 | Outpatient (CLI) | payer MEDICARE, BC ==
[~2022-11-22] MED LIST changes: -ACETAMINOPHEN TAB 650MG DOSE (2X325MG) PO ONE; -FAMOTIDINE 20MG/2ML VIAL IV ONE; -IMMUNE GLOBULIN 10% 10 GM in IV 1 EA IV ONE; -IMMUNE GLOBULIN 10% 40 GM in IV 1 EA IV ONE; -IMMUNE GLOBULIN 10% 5 GM in IV 1 EA IV ONE; +MAGNESIUM PO; -SODIUM CHLORIDE 0.9% INJ 10 ML SYR IV SCH; -diphenhydrAMINE 50MG/ML VIAL IV ONE
== END ==
LOC: M LABSMTC 09:37
PROVIDERS: ATTEND Anesthesiology
DX: Z01.812 Encounter for preprocedural laboratory examination (principal)

== ENCOUNTER 2022-11-27 06:46 | Day surgery (SDC) | payer MEDICARE, BC ==
[~2022-11-27] VITALS: Ht 182.9 cm; Wt 116.5 kg
[~2022-11-27 06:46] MED LIST changes: +NS 1,000 ML IV ONE
[2022-11-27] MEDS ORDERED: SIMETHICONE 40MG/0.6ML DROPS 30ML As Ordered ONE (06:48)
[2022-11-27] MEDS ORDERED: LIDOCAINE 2% 100MG/5ML SDV (FOR ANES.) As Ordered ONE (07:27)
[2022-11-27] MEDS ORDERED: propofoL 200 MG/20 ML VIAL As Ordered ONE ×2 (07:27→07:49)
[2022-11-27 08:13] VITALS: BP 143/87
== END 2022-11-27 08:15 | disposition home or self-care (01) ==
LOC: M OPP 06:46
PROVIDERS: ATTEND Internal Medicine Gastroenterology
DX: Z12.11 Encounter for screening for malignant neoplasm of colon (principal); D12.0 Benign neoplasm of cecum; K64.0 First degree hemorrhoids; C90.00 Multiple myeloma not having achieved remission; Z94.84 Stem cells transplant status; I10 Essential (primary) hypertension; N40.0 Benign prostatic hyperplasia without lower urinary tract symptoms; E78.00 Pure hypercholesterolemia, unspecified; Z79.02 Long term (current) use of antithrombotics/antiplatelets; Z79.2 Long term (current) use of antibiotics; Z79.52 Long term (current) use of systemic steroids; Z79.620 Long term (current) use of immunosuppressive biologic; Z79.82 Long term (current) use of aspirin; Z79.899 Other long term (current) drug therapy; Z88.0 Allergy status to penicillin; Z88.1 Allergy status to other antibiotic agents; Z88.8 Allergy status to other drugs, medicaments and biological substances

== ENCOUNTER 2022-11-29 09:20 | Outpatient (CLI) | payer MEDICARE, BC ==
[~2022-11-29] VITALS: Ht 180.3 cm; Wt 113.0 kg
[2022-11-29 09:20] VITALS: BP 104/56
[~2022-11-29 09:20] MED LIST changes: -NS 1,000 ML IV ONE; +SODIUM CHLORIDE 0.9% INJ 10 ML SYR IV SCH
[2022-11-29] MEDS ORDERED: IMMUNE GLOBULIN 10% 40 GM in IV 1 EA IV ONE (09:30)
[2022-11-29] MEDS ORDERED: diphenhydrAMINE 50MG/ML VIAL IV ONE (09:30)
[2022-11-29] MEDS ORDERED: IMMUNE GLOBULIN 10% 5 GM in IV 1 EA IV ONE (09:30)
[2022-11-29] MEDS ORDERED: FAMOTIDINE 20MG/2ML VIAL IV ONE (09:30)
[2022-11-29] MEDS ORDERED: ACETAMINOPHEN TAB 650MG DOSE (2X325MG) PO ONE (09:30)
[2022-11-29] MEDS ORDERED: IMMUNE GLOBULIN 10% 10 GM in IV 1 EA IV ONE (09:30)
[2022-11-29 11:00] VITALS: BP 107/56
[2022-11-29] MEDS ORDERED: SODIUM CHLORIDE 0.9% INJ 10 ML SYR IV PRN (11:25)
[2022-11-29 11:30] VITALS: BP 119/67
[2022-11-29 13:55] VITALS: BP 135/78
== END 2022-11-29 13:55 | disposition home or self-care (01) ==
LOC: M INFU 09:20
PROVIDERS: ATTEND Specialist
DX: C90.00 Multiple myeloma not having achieved remission (principal); D80.1 Nonfamilial hypogammaglobulinemia; Z88.0 Allergy status to penicillin; Z88.1 Allergy status to other antibiotic agents; Z88.8 Allergy status to other drugs, medicaments and biological substances
CPT/HCPCS: 96365; 96366; 96375; J1100; J1200; J1459

== ENCOUNTER 2023-01-24 10:14 | Outpatient (CLI) | payer MEDICARE, BC ==
[~2023-01-24] VITALS: Ht 182.9 cm; Wt 117.9 kg
[2023-01-24 10:20] VITALS: BP 133/76
[2023-01-24] MEDS ORDERED: ACETAMINOPHEN TAB 650MG DOSE (2X325MG) PO ONE (10:30)
[2023-01-24] MEDS ORDERED: FAMOTIDINE 20MG/2ML VIAL IV ONE (10:30)
[2023-01-24] MEDS ORDERED: diphenhydrAMINE 50MG/ML VIAL IV ONE (10:30)
[2023-01-24] MEDS ORDERED: IMMUNE GLOBULIN 10% 10 GM in IV 1 EA IV ONE (10:30)
[2023-01-24] MEDS ORDERED: IMMUNE GLOBULIN 10% 40 GM in IV 1 EA IV ONE (10:30)
[2023-01-24] MEDS ORDERED: SODIUM CHLORIDE 0.9% INJ 10 ML SYR IV PRN (10:55)
[2023-01-24 11:50] VITALS: BP 119/74
[2023-01-24 12:20] VITALS: BP 120/80
[2023-01-24 12:50] VITALS: BP 133/73
[2023-01-24 14:10] VITALS: BP 127/75
[2023-01-25] MEDS ORDERED: SODIUM CHLORIDE 0.9% INJ 10 ML SYR IV SCH (09:00)
== END 2023-01-24 14:20 | disposition home or self-care (01) ==
LOC: M INFU 10:14
PROVIDERS: ATTEND Specialist
DX: D80.1 Nonfamilial hypogammaglobulinemia (principal); Z88.0 Allergy status to penicillin; Z88.1 Allergy status to other antibiotic agents; Z88.8 Allergy status to other drugs, medicaments and biological substances
CPT/HCPCS: 96365; 96366; 96375; J1200; J1459

== ENCOUNTER → 2023-01-24 | Outpatient (CLI) | payer MEDICARE, BC ==
[~2023-01-24] MED LIST changes: +LORA1TAB23; -LORA1TAB4; -LOSA100T45 PO; +LOSA100T46 PO; -SODIUM CHLORIDE 0.9% INJ 10 ML SYR IV SCH
== END ==
LOC: M INFU 10:12
PROVIDERS: ATTEND Specialist
DX: D80.1 Nonfamilial hypogammaglobulinemia (principal); C90.00 Multiple myeloma not having achieved remission; Z53.9 Procedure and treatment not carried out, unspecified reason; Z88.0 Allergy status to penicillin; Z88.1 Allergy status to other antibiotic agents; Z88.8 Allergy status to other drugs, medicaments and biological substances

== ENCOUNTER → 2023-03-20 | Outpatient (CLI) | payer MEDICARE, BC ==
[~2023-03-20] MED LIST changes: -K-TA10TA2 PO; +POTA-165 PO
== END ==
LOC: M WUC 14:28
PROVIDERS: ATTEND Family Medicine
DX: R05.9 Cough, unspecified (principal)

== ENCOUNTER → 2023-06-07 | Outpatient (CLI) | payer MEDICARE, BC ==
[~2023-06-07] MED LIST changes: +[UNRECOGNIZED DRUG - OTHER]
== END ==
LOC: M CARPUL 15:25
PROVIDERS: ATTEND Specialist
DX: Z13.6 Encounter for screening for cardiovascular disorders (principal); Z79.811 Long term (current) use of aromatase inhibitors; I08.1 Rheumatic disorders of both mitral and tricuspid valves

== ENCOUNTER → 2023-08-15 | Outpatient (CLI) | payer MEDICARE, BC ==
[~2023-08-15] MED LIST changes: +COVI50SY IM; +FINA5TAB2 PO; +FLU60SYR IM; +PROHANCE 279.3MG/ML 15ML VIAL As Ordered ONE; +PROHANCE 279.3MG/ML 5ML VIAL As Ordered ONE; +RSV120VI IM
== END ==
LOC: M RAD 15:40
PROVIDERS: ATTEND Internal Medicine Hematology & Oncology
DX: C90.00 Multiple myeloma not having achieved remission (principal); M54.50 Low back pain, unspecified
CPT/HCPCS: 72158; A9576

== ENCOUNTER → 2023-09-02 | Outpatient (REF) | payer MEDICARE, BC ==
[~2023-09-02] MED LIST changes: +CICL6.6S; -PROHANCE 279.3MG/ML 15ML VIAL As Ordered ONE; -PROHANCE 279.3MG/ML 5ML VIAL As Ordered ONE
== END ==
LOC: M LAB REF 17:53
PROVIDERS: ATTEND Physician Assistant
DX: R30.0 Dysuria (principal)

== ENCOUNTER 2023-11-30 08:17 | Outpatient (CLI) | payer MEDICARE, BC ==
[~2023-11-30 08:17] MED LIST changes: +ALBUTEROL SULFATE 2.5MG/0.5ML INH NEB SOLN INH PRN; +EPINEPHrine INJ 1 MG/ML 1ML AMP IM PRN; +NS 1,000 ML IV SCH; +SODIUM CHLORIDE 0.9% INJ 10 ML SYR IV PRN; +diphenhydrAMINE 50MG/ML VIAL IV PRN; +methylPREDNISolone 125MG 2ML VIAL IV PRN
[2023-11-30] MEDS: diphenhydrAMINE 25MG IV PRIOR TO INFUSION IV ONE (08:49)
[2023-11-30] MEDS: ACETAMINOPHEN 650MG PO PRIOR TO INFUSION PO ONE (08:49)
[2023-11-30] MEDS: IMMUNE GLOBULIN 10% 10 GM in IV 1 EA IV ONE (08:59)
[2023-11-30] MEDS: IMMUNE GLOBULIN 10% 40 GM in IV 1 EA IV ONE (09:00)
[2023-11-30 09:55] VITALS: BP 111/55; O2SAT 100
[2023-11-30] MEDS: SODIUM CHLORIDE 0.9% INJ 10 ML SYR IV SCH (12:18)
[2023-11-30 12:30] VITALS: BP 137/65; O2SAT 98
== END 2023-11-30 12:30 ==
LOC: M INFU 08:17
PROVIDERS: ATTEND Specialist
DX: C90.00 Multiple myeloma not having achieved remission (principal); D80.1 Nonfamilial hypogammaglobulinemia; Z88.0 Allergy status to penicillin; Z88.1 Allergy status to other antibiotic agents; Z88.8 Allergy status to other drugs, medicaments and biological substances
CPT/HCPCS: 96365; 96366; 96375; J1200; J1459

== ENCOUNTER 2024-01-11 08:15 | Outpatient (CLI) | payer MEDICARE, BC ==
[~2024-01-11] VITALS: Ht 182.9 cm; Wt 118.0 kg
[2024-01-11 08:10] VITALS: BP 124/81; O2SAT 98
[~2024-01-11 08:15] MED LIST changes: -SODIUM CHLORIDE 0.9% INJ 10 ML SYR IV PRN
[2024-01-11] MEDS: methylPREDNISolone 125MG 2ML VIAL IV ONE (08:32)
[2024-01-11] MEDS: diphenhydrAMINE 25MG PO PRIOR TO INFUSION PO ONE (08:32)
[2024-01-11] MEDS: IMMUNE GLOBULIN 10% 40 GM in IV 1 EA IV ONE (09:01)
[2024-01-11] MEDS: IMMUNE GLOBULIN 10% 20 GM in IV 1 EA IV ONE (09:02)
[2024-01-11 09:30] VITALS: BP 118/60; O2SAT 97
[2024-01-11 10:00] VITALS: BP 120/69; O2SAT 98
[2024-01-11 11:00] VITALS: BP 139/71; O2SAT 96
[2024-01-11 12:15] VITALS: BP 139/70; O2SAT 98
[2024-01-11] MEDS ORDERED: SODIUM CHLORIDE 0.9% INJ 10 ML SYR IV PRN (12:20)
[2024-01-11] MEDS: SODIUM CHLORIDE 0.9% INJ 10 ML SYR IV SCH (12:23)
== END 2024-01-11 12:30 | disposition home or self-care (01) ==
LOC: M INFU 08:15
PROVIDERS: ATTEND Specialist
DX: C00-D49 Neoplasms (principal); D80.1 Nonfamilial hypogammaglobulinemia; Z88.0 Allergy status to penicillin; Z88.1 Allergy status to other antibiotic agents; Z88.8 Allergy status to other drugs, medicaments and biological substances
CPT/HCPCS: 96365; 96366; 96367; J1459; J2919

== ENCOUNTER → 2024-01-22 | Outpatient (REF) | payer MEDICARE, BC ==
[~2024-01-22] MED LIST changes: -ALBUTEROL SULFATE 2.5MG/0.5ML INH NEB SOLN INH PRN; -EPINEPHrine INJ 1 MG/ML 1ML AMP IM PRN; -NS 1,000 ML IV SCH; +NYST1POW9; -diphenhydrAMINE 50MG/ML VIAL IV PRN; -methylPREDNISolone 125MG 2ML VIAL IV PRN
[2024-01-22 14:08] LABS: BASO # 0.1 10^3/uL (0.0-0.2); BASO % 1.3 % (0.0-1.0); EOS # 0.2 10^3/uL (0.0-0.5); EOS % 6.4 % (0.0-3.0); HEMATOCRIT 37.4 % (42.0-52.0); HEMOGLOBIN 12.6 g/dl (13.5-17.5); LYMPH # 0.3 10^3/uL (1.5-5.0); LYMPH % 8.6 % (24.0-44.0); MEAN CORPUSCULAR HEMOGLOBIN 33.5 pg (27.0-33.0); MEAN CORPUSCULAR HGB CONC 33.7 g/dl (32.0-36.5); MEAN CORPUSCULAR VOLUME 99.5 fl (80.0-96.0); MONO # 0.3 10^3/uL (0.0-0.8); NEUTROPHILS # 2.9 10^3/uL (1.5-8.5); NEUTROPHILS % 76.4 % (36.0-66.0); PLATELET COUNT, AUTOMATED 258 10^3/uL (150-450); RED BLOOD COUNT 3.76 10^6/uL (4.30-6.10); WHITE BLOOD COUNT 3.7 10^3/uL (4.0-10.0)
[2024-01-22 14:28] LABS: ERYTHROCYTE SEDIMENTATION RATE 29 mm/hr (0-20)
[2024-01-22 14:41] LABS: ALBUMIN 3.3 G/DL (3.2-5.2); ALKALINE PHOSPHATASE 54 U/L (46-116); ALT/SGPT 23 U/L (7.0-40); AST/SGOT 19 U/L (<34); BILIRUBIN,TOTAL 0.6 MG/DL (0.3-1.2); BLOOD UREA NITROGEN 22 MG/DL (9-23); CALCIUM LEVEL 9.8 MG/DL (8.3-10.6); CARBON DIOXIDE LEVEL 27 MMOL/L (20-31); CHLORIDE LEVEL 104 MMOL/L (98-107); CREATININE FOR GFR 1.02 MG/DL (0.70-1.30); GLOMERULAR FILTRATION RATE > 60.0 (>42); GLUCOSE, FASTING 301 MG/DL (74-106); MAGNESIUM LEVEL 1.4 MG/DL (1.8-2.4); POTASSIUM SERUM 4.1 MMOL/L (3.5-5.1); SODIUM LEVEL 136 MMOL/L (136-145); TOTAL PROTEIN 6.3 G/DL (5.7-8.2)
[2024-01-22 14:42] LABS: FOLATE > 24.0 NG/ML (>5.4)
[2024-01-22 14:43] LABS: VITAMIN B12 LEVEL 765 PG/ML (211-911)
== END ==
LOC: M LAB REF 13:30
PROVIDERS: ATTEND Psychiatry & Neurology Neurology
DX: G62.9 Polyneuropathy, unspecified (principal)

== ENCOUNTER 2024-02-07 08:10 | Outpatient (CLI) | payer MEDICARE, BC ==
[~2024-02-07] VITALS: Ht 182.9 cm; Wt 123.0 kg
[2024-02-07 08:10] VITALS: BP 134/60; O2SAT 98
[~2024-02-07 08:10] MED LIST changes: +ALBUTEROL SULFATE 2.5MG/0.5ML INH NEB SOLN INH PRN; +EPINEPHrine INJ 1 MG/ML 1ML AMP IM PRN; +NS 1,000 ML IV SCH; +diphenhydrAMINE 50MG/ML VIAL IV PRN; +methylPREDNISolone 125MG 2ML VIAL IV PRN
[2024-02-07] MEDS: diphenhydrAMINE 25MG CAP PO ONE (08:17)
[2024-02-07] MEDS: methylPREDNISolone 40MG 1ML VIAL IV ONE (08:17)
[2024-02-07] MEDS: IMMUNE GLOBULIN 10% 40 GM in IV 1 EA IV ONE (08:54)
[2024-02-07] MEDS: IMMUNE GLOBULIN 10% 20 GM in IV 1 EA IV ONE (08:55)
[2024-02-07 09:30] VITALS: BP 131/73; O2SAT 99
[2024-02-07 10:00] VITALS: BP 139/81; O2SAT 100
[2024-02-07 10:30] VITALS: BP 167/89; O2SAT 98
[2024-02-07 11:30] VITALS: BP 155/81; O2SAT 99
[2024-02-07] MEDS: SODIUM CHLORIDE 0.9% INJ 10 ML SYR IV SCH (12:20)
== END 2024-02-07 12:30 ==
LOC: M INFU 08:10
PROVIDERS: ATTEND Specialist
DX: D80.1 Nonfamilial hypogammaglobulinemia (principal); C90.00 Multiple myeloma not having achieved remission; Z87.01 Personal history of pneumonia (recurrent)
CPT/HCPCS: 96365; 96366; 96375; J1459; J2919

== ENCOUNTER 2024-04-18 08:30 | Outpatient (CLI) | payer MEDICARE, BC ==
[~2024-04-18] VITALS: Ht 182.9 cm; Wt 117.0 kg
[2024-04-18 08:30] VITALS: BP 125/65; O2SAT 97
[~2024-04-18 08:30] MED LIST changes: +AZIT-12 PO; -CICL6.6S; +CICL6.6S TOP; +IMMUNE GLOBULIN 10% 20 GM in IV 1 EA IV ONE; +IMMUNE GLOBULIN 10% 40 GM in IV 1 EA IV ONE; -NYST1POW9; +NYST1POW9 TOP; +POTA-298 PO
[2024-04-18] MEDS: diphenhydrAMINE 25MG PO PRIOR TO INFUSION PO ONE (08:54)
[2024-04-18] MEDS: methylPREDNISolone 125MG 2ML VIAL IV ONE (08:55)
[2024-04-18] MEDS: IMMUNE GLOBULIN 10% 40 GM in IV 1 EA IV ONE (09:15)
[2024-04-18] MEDS: IMMUNE GLOBULIN 10% 20 GM in IV 1 EA IV ONE (09:16)
[2024-04-18 10:45] VITALS: BP 134/71; O2SAT 99
[2024-04-18 11:15] VITALS: BP 129/69; O2SAT 98
[2024-04-18 12:15] VITALS: BP 135/74; O2SAT 99
[2024-04-18 12:38] VITALS: BP 141/80; O2SAT 100
[2024-04-18] MEDS: SODIUM CHLORIDE 0.9% INJ 10 ML SYR IV PRN (12:42)
[2024-04-22] MEDS ORDERED: SYST0.6S OP (11:51)
== END 2024-04-18 12:50 ==
LOC: M INFU 08:30
PROVIDERS: ATTEND Specialist
DX: C00-D49 Neoplasms (principal); D80.1 Nonfamilial hypogammaglobulinemia; Z88.0 Allergy status to penicillin; Z88.1 Allergy status to other antibiotic agents; Z88.8 Allergy status to other drugs, medicaments and biological substances
CPT/HCPCS: 96365; 96366; 96375; J1459; J2919

== ENCOUNTER 2024-05-16 08:30 | Outpatient (CLI) | payer MEDICARE, BC ==
[~2024-05-16] VITALS: Ht 182.9 cm; Wt 118.0 kg
[2024-05-16 08:30] VITALS: BP 124/70; O2SAT 98
[~2024-05-16 08:30] MED LIST changes: -IMMUNE GLOBULIN 10% 20 GM in IV 1 EA IV ONE; -IMMUNE GLOBULIN 10% 40 GM in IV 1 EA IV ONE
[2024-05-16] MEDS: methylPREDNISolone 125MG 2ML VIAL IV ONE (08:48)
[2024-05-16] MEDS: diphenhydrAMINE 25MG PO PRIOR TO INFUSION PO ONE (08:48)
[2024-05-16] MEDS: IMMUNE GLOBULIN 10% 20 GM in IV 1 EA IV ONE (09:22)
[2024-05-16] MEDS: IMMUNE GLOBULIN 10% 40 GM in IV 1 EA IV ONE (09:24)
[2024-05-16 10:00] VITALS: BP 135/62; O2SAT 100
[2024-05-16 10:30] VITALS: BP 136/62; O2SAT 100
[2024-05-16 11:00] VITALS: BP 140/68; O2SAT 100
[2024-05-16] MEDS: SODIUM CHLORIDE 0.9% INJ 10 ML SYR IV PRN (12:49)
[2024-05-16 12:59] VITALS: BP 133/60; O2SAT 100
== END 2024-05-16 13:00 ==
LOC: M INFU 08:30
PROVIDERS: ATTEND Specialist
DX: C90.00 Multiple myeloma not having achieved remission (principal); D80.1 Nonfamilial hypogammaglobulinemia; Z87.01 Personal history of pneumonia (recurrent)
CPT/HCPCS: 96365; 96366; J1459; J1642; J2919

== ENCOUNTER 2024-06-13 08:40 | Outpatient (CLI) | payer MEDICARE, BC ==
[~2024-06-13] VITALS: Ht 182.9 cm; Wt 118.0 kg
[2024-06-13 08:40] VITALS: BP 108/64; O2SAT 99
[2024-06-13] MEDS: diphenhydrAMINE 25MG PO PRIOR TO INFUSION PO ONE (09:10)
[2024-06-13] MEDS: methylPREDNISolone 40MG 1ML VIAL IV ONE (09:10)
[2024-06-13] MEDS: ACETAMINOPHEN 650MG PO PRIOR TO INFUSION PO ONE (09:10)
[2024-06-13] MEDS: IMMUNE GLOBULIN 10% 40 GM in IV 1 EA IV ONE (09:32)
[2024-06-13] MEDS: IMMUNE GLOBULIN 10% 20 GM in IV 1 EA IV ONE (09:36)
[2024-06-13 10:00] VITALS: BP 113/63; O2SAT 99
[2024-06-13 10:30] VITALS: BP 120/69; O2SAT 100
[2024-06-13 11:00] VITALS: BP 133/69; O2SAT 100
[2024-06-13 12:00] VITALS: BP 129/70; O2SAT 100
[2024-06-13] MEDS: SODIUM CHLORIDE 0.9% INJ 10 ML SYR IV PRN (12:45)
[2024-06-13 12:48] VITALS: BP 142/79; O2SAT 98
== END 2024-06-13 12:50 ==
LOC: M INFU 08:40
PROVIDERS: ATTEND Specialist
DX: C90.00 Multiple myeloma not having achieved remission (principal); D80.1 Nonfamilial hypogammaglobulinemia; Z88.0 Allergy status to penicillin; Z88.1 Allergy status to other antibiotic agents; Z88.8 Allergy status to other drugs, medicaments and biological substances
CPT/HCPCS: 96365; 96366; 96375; J1459; J1642; J2919

== ENCOUNTER 2024-07-25 08:25 | Outpatient (CLI) | payer MEDICARE, BC ==
[~2024-07-25] VITALS: Ht 182.9 cm; Wt 120.0 kg
[2024-07-25 08:25] VITALS: BP 137/65; O2SAT 97
[~2024-07-25 08:25] MED LIST changes: +NYST1POW3 TOP; -NYST1POW9 TOP
[2024-07-25] MEDS: ACETAMINOPHEN 650MG PO PRIOR TO INFUSION PO ONE (08:41)
[2024-07-25] MEDS: methylPREDNISolone 40MG 1ML VIAL IV ONE (08:41)
[2024-07-25] MEDS: diphenhydrAMINE 25MG PO PRIOR TO INFUSION PO ONE (08:41)
[2024-07-25] MEDS: IMMUNE GLOBULIN 10% 40 GM in IV 1 EA IV ONE (08:53)
[2024-07-25] MEDS: IMMUNE GLOBULIN 10% 20 GM in IV 1 EA IV ONE (08:54)
[2024-07-25] MEDS: SODIUM CHLORIDE 0.9% INJ 10 ML SYR IV SCH (09:00)
[2024-07-25] MEDS ORDERED: SODIUM CHLORIDE 0.9% INJ 10 ML SYR IV PRN (09:05)
[2024-07-25 09:30] VITALS: BP 147/82; O2SAT 99
[2024-07-25 10:00] VITALS: BP 144/73; O2SAT 100
[2024-07-25 10:30] VITALS: BP 147/81; O2SAT 100
[2024-07-25 12:05] VITALS: BP 153/82; O2SAT 98
[2024-07-28] MEDS ORDERED: ONDA-84 PO (14:14)
== END 2024-07-25 12:05 ==
LOC: M INFU 08:25
PROVIDERS: ATTEND Specialist
DX: D80.1 Nonfamilial hypogammaglobulinemia (principal); C90.00 Multiple myeloma not having achieved remission; Z87.01 Personal history of pneumonia (recurrent); Z88.0 Allergy status to penicillin; Z88.1 Allergy status to other antibiotic agents; Z88.8 Allergy status to other drugs, medicaments and biological substances
CPT/HCPCS: 96365; 96366; 96375; J1459; J1642; J2919

== ENCOUNTER 2024-08-22 08:30 | Outpatient (CLI) | payer MEDICARE, BC ==
[~2024-08-22] VITALS: Ht 182.9 cm; Wt 120.0 kg
[2024-08-22 08:30] VITALS: BP 136/63; O2SAT 98
[~2024-08-22 08:30] MED LIST changes: +HYDR-3363; +METF-838; +NS (Normal Saline) 0.9% 1,000 ML IV SCH; -NS 1,000 ML IV SCH; +methylPREDNISolone 40MG 1ML VIAL IV ONE
[2024-08-22] MEDS: diphenhydrAMINE 25MG PO PRIOR TO INFUSION PO ONE (08:32)
[2024-08-22] MEDS: ACETAMINOPHEN 650 MG PO ONE (08:33)
[2024-08-22] MEDS: IMMUNE GLOBULIN 10% 20 GM in IV 1 EA IV ONE (09:00)
[2024-08-22] MEDS: IMMUNE GLOBULIN 10% 40 GM in IV 1 EA IV ONE (09:01)
[2024-08-22 09:30] VITALS: BP 120/73; O2SAT 100
[2024-08-22 10:00] VITALS: BP 143/65; O2SAT 98
[2024-08-22 11:00] VITALS: BP 151/76; O2SAT 97
[2024-08-22] MEDS: SODIUM CHLORIDE 0.9% INJ 10 ML SYR IV PRN (11:55)
[2024-08-22 12:00] VITALS: BP 170/80; O2SAT 98
== END 2024-08-22 12:00 ==
LOC: M INFU 08:30
PROVIDERS: ATTEND Specialist
DX: C90.00 Multiple myeloma not having achieved remission (principal); D80.1 Nonfamilial hypogammaglobulinemia; Z87.01 Personal history of pneumonia (recurrent); Z88.0 Allergy status to penicillin; Z88.1 Allergy status to other antibiotic agents; Z88.8 Allergy status to other drugs, medicaments and biological substances
CPT/HCPCS: 96365; 96366; J1459; J1642

== ENCOUNTER 2024-09-19 08:26 | Outpatient (CLI) | payer MEDICARE, BC ==
[~2024-09-19] VITALS: Ht 182.9 cm; Wt 120.0 kg
[~2024-09-19 08:26] MED LIST changes: -ALBUTEROL SULFATE 2.5MG/0.5ML INH NEB SOLN INH PRN; -EPINEPHrine INJ 1 MG/ML 1ML AMP IM PRN; -NS (Normal Saline) 0.9% 1,000 ML IV SCH; -diphenhydrAMINE 50MG/ML VIAL IV PRN; -methylPREDNISolone 125MG 2ML VIAL IV PRN; -methylPREDNISolone 40MG 1ML VIAL IV ONE
[2024-09-19] MEDS ORDERED: diphenhydrAMINE 50MG/ML VIAL IV PRN (08:30)
[2024-09-19] MEDS ORDERED: EPINEPHrine INJ 1 MG/ML 1ML AMP IM PRN (08:30)
[2024-09-19] MEDS ORDERED: NS (Normal Saline) 0.9% 1,000 ML IV SCH (08:30)
[2024-09-19] MEDS ORDERED: methylPREDNISolone 125MG 2ML VIAL IV PRN (08:30)
[2024-09-19] MEDS ORDERED: ALBUTEROL SULFATE 2.5MG/0.5ML INH NEB SOLN INH PRN (08:30)
[2024-09-19 08:40] VITALS: BP 135/86; O2SAT 97
[2024-09-19] MEDS: ACETAMINOPHEN 650 MG PO ONE (08:45)
[2024-09-19] MEDS: diphenhydrAMINE 25MG PO PRIOR TO INFUSION PO ONE (08:45)
[2024-09-19] MEDS: methylPREDNISolone 40MG 1ML VIAL IV ONE (08:48)
[2024-09-19] MEDS: IMMUNE GLOBULIN 10% 20 GM in IV 1 EA IV ONE (08:49)
[2024-09-19] MEDS: IMMUNE GLOBULIN 10% 40 GM in IV 1 EA IV ONE (08:50)
[2024-09-19 09:40] VITALS: BP 140/80; O2SAT 98
[2024-09-19 12:05] VITALS: BP 155/85; O2SAT 99
[2024-09-19] MEDS: SODIUM CHLORIDE 0.9% INJ 10 ML SYR IV SCH (12:07)
== END 2024-09-19 12:05 | disposition home or self-care (01) ==
LOC: M INFU 08:26
PROVIDERS: ATTEND Specialist
DX: C90.00 Multiple myeloma not having achieved remission (principal); D80.1 Nonfamilial hypogammaglobulinemia; Z87.01 Personal history of pneumonia (recurrent); Z88.0 Allergy status to penicillin; Z88.1 Allergy status to other antibiotic agents; Z88.8 Allergy status to other drugs, medicaments and biological substances
CPT/HCPCS: 96365; 96366; 96375; J1459; J1642; J2919

== ENCOUNTER 2024-12-26 08:26 | Outpatient (CLI) | payer MEDICARE, BC ==
[~2024-12-26] VITALS: Ht 182.9 cm; Wt 118.0 kg
[~2024-12-26 08:26] MED LIST changes: +ALBUTEROL SULFATE 2.5MG/0.5ML INH CONCENTRATE NEB SOLN INH PRN; +EPINEPHrine INJ 1 MG/ML 1ML AMP IM PRN; +METF500T13 PO; +METF750T36; +NS (Normal Saline) 0.9% 1,000 ML IV SCH; +PROC10TA5 PO; +TRIA1CR80 TOP; +diphenhydrAMINE 50MG/ML VIAL IV PRN; +methylPREDNISolone 125MG 2ML VIAL IV PRN
[2024-12-26 08:30] VITALS: BP 132/74; O2SAT 97
[2024-12-26] MEDS: ACETAMINOPHEN 650 MG PO ONE (08:46)
[2024-12-26] MEDS: methylPREDNISolone 40MG 1ML VIAL IV ONE (08:46)
[2024-12-26] MEDS: diphenhydrAMINE 25MG CAP PO ONE (08:46)
[2024-12-26] MEDS: IMMUNE GLOBULIN 10% 20 GM in IV 1 EA IV ONE (08:56)
[2024-12-26] MEDS: IMMUNE GLOBULIN 10% 40 GM in IV 1 EA IV ONE (08:59)
[2024-12-26 09:30] VITALS: BP 130/89; O2SAT 98
[2024-12-26 10:00] VITALS: BP 117/67; O2SAT 100
[2024-12-26 10:30] VITALS: BP 126/71; O2SAT 99
[2024-12-26] MEDS ORDERED: SODIUM CHLORIDE 0.9% INJ 10 ML SYR IV PRN (11:15)
[2024-12-26 11:30] VITALS: BP 139/89; O2SAT 98
[2024-12-26 12:30] VITALS: BP 139/76; O2SAT 99
[2024-12-26] MEDS: SODIUM CHLORIDE 0.9% INJ 10 ML SYR IV PRN (12:32)
== END 2024-12-26 12:30 | disposition home or self-care (01) ==
LOC: M INFU 08:26
PROVIDERS: ATTEND Specialist
DX: C90.00 Multiple myeloma not having achieved remission (principal); D80.1 Nonfamilial hypogammaglobulinemia; Z86.19 Personal history of other infectious and parasitic diseases; Z88.0 Allergy status to penicillin; Z88.1 Allergy status to other antibiotic agents; Z88.8 Allergy status to other drugs, medicaments and biological substances
CPT/HCPCS: 96365; 96366; 96375; J1459; J1642; J2919

== ENCOUNTER 2025-03-20 08:22 | Outpatient (CLI) | payer MEDICARE, BC ==
[~2025-03-20] VITALS: Ht 182.9 cm; Wt 115.0 kg
[~2025-03-20 08:22] MED LIST changes: +ACYC-438 PO; -ACYC1TAB PO; +ALBUTEROL SULFATE 2.5 MG/0.5 ML INH CONCENTRATE NEB SOLN INH PRN; -ALBUTEROL SULFATE 2.5MG/0.5ML INH CONCENTRATE NEB SOLN INH PRN; +ATOR40TA75; +METF500T13; +TIRZ5PEN SQ; +diphenhydrAMINE 50 MG/ML VIAL IV PRN; -diphenhydrAMINE 50MG/ML VIAL IV PRN; -methylPREDNISolone 125MG 2ML VIAL IV PRN
[2025-03-20 08:25] VITALS: BP 111/55; O2SAT 97
[2025-03-20] MEDS: diphenhydrAMINE 25MG PO PRIOR TO INFUSION PO ONE (08:43)
[2025-03-20] MEDS: ACETAMINOPHEN 650MG PO PRIOR TO INFUSION PO ONE (08:43)
[2025-03-20] MEDS: IMMUNE GLOBULIN 10% 40 GM in IV 1 EA IV ONE (08:46)
[2025-03-20] MEDS: IMMUNE GLOBULIN 10% 20 GM in IV 1 EA IV ONE (08:49)
[2025-03-20 09:30] VITALS: BP 122/76; O2SAT 98
[2025-03-20 10:00] VITALS: BP 118/70; O2SAT 100
[2025-03-20 10:30] VITALS: BP 120/84; O2SAT 100
[2025-03-20 11:30] VITALS: BP 133/81; O2SAT 100
[2025-03-20 12:44] VITALS: BP 154/83; O2SAT 100
[2025-03-20] MEDS: SODIUM CHLORIDE 0.9% INJ 10 ML SYR IV PRN (12:47)
[2025-03-20] MEDS: HEPARIN LOCK FLUSH 100 UNITS/ML 3 ML SYRINGE IV PRN (12:47)
== END 2025-03-20 12:50 | disposition home or self-care (01) ==
LOC: M INFU 08:22
PROVIDERS: ATTEND Specialist
DX: C90.00 Multiple myeloma not having achieved remission (principal); D80.1 Nonfamilial hypogammaglobulinemia; Z87.01 Personal history of pneumonia (recurrent); Z88.0 Allergy status to penicillin; Z88.1 Allergy status to other antibiotic agents; Z88.8 Allergy status to other drugs, medicaments and biological substances
CPT/HCPCS: 96365; 96366; 96375; J1459; J1642; J2919

== ENCOUNTER → 2025-04-17 | Outpatient (CLI) | payer MEDICARE, BC ==
[~2025-04-17] VITALS: Ht 182.9 cm; Wt 114.3 kg
[~2025-04-17] MED LIST changes: +TIRZ2.5P
[2025-04-17 08:32] VITALS: BP 113/63; O2SAT 98
[2025-04-17] MEDS: diphenhydrAMINE 25MG PO PRIOR TO INFUSION PO ONE (09:04)
[2025-04-17] MEDS: ACETAMINOPHEN 650MG PO PRIOR TO INFUSION PO ONE (09:04)
[2025-04-17] MEDS: IMMUNE GLOBULIN 10% 40 GM in IV 1 EA IV ONE (09:23)
[2025-04-17] MEDS: IMMUNE GLOBULIN 10% 10 GM in IV 1 EA IV ONE (09:24)
[2025-04-17] MEDS: IMMUNE GLOBULIN 10% 5 GM in IV 1 EA IV ONE (09:25)
[2025-04-17 10:01] VITALS: BP 120/69; O2SAT 99
[2025-04-17 10:30] VITALS: BP 163/82; O2SAT 100
[2025-04-17 11:00] VITALS: BP 131/75; O2SAT 100
[2025-04-17 12:55] VITALS: BP 133/69; O2SAT 100
[2025-04-17] MEDS: SODIUM CHLORIDE 0.9% INJ 10 ML SYR IV PRN (13:01)
[2025-04-17] MEDS: HEPARIN LOCK FLUSH 100 UNITS/ML 3 ML SYRINGE IV PRN (13:01)
== END ==
LOC: M INFU 08:23
PROVIDERS: ATTEND Specialist
DX: C90.00 Multiple myeloma not having achieved remission (principal); Z88.0 Allergy status to penicillin; Z88.1 Allergy status to other antibiotic agents; Z88.8 Allergy status to other drugs, medicaments and biological substances
CPT/HCPCS: 96365; 96366; 96375; J1459; J1642; J2919

== ENCOUNTER 2025-05-15 08:20 | Outpatient (CLI) | payer MEDICARE, BC ==
[~2025-05-15] VITALS: Ht 182.9 cm; Wt 110.0 kg
[~2025-05-15 08:20] MED LIST changes: -ALBUTEROL SULFATE 2.5 MG/0.5 ML INH CONCENTRATE NEB SOLN INH PRN; -EPINEPHrine INJ 1 MG/ML 1ML AMP IM PRN; -NS (Normal Saline) 0.9% 1,000 ML IV SCH; -ZOLP5TAB PO; +ZOLP5TAB9 PO; -diphenhydrAMINE 50 MG/ML VIAL IV PRN
[2025-05-15 08:30] VITALS: BP 106/60; O2SAT 98
[2025-05-15] MEDS ORDERED: ALBUTEROL SULFATE 2.5 MG/0.5 ML INH CONCENTRATE NEB SOLN INH PRN (08:30)
[2025-05-15] MEDS ORDERED: NS (Normal Saline) 0.9% 1,000 ML IV SCH (08:30)
[2025-05-15] MEDS ORDERED: diphenhydrAMINE 50 MG/ML VIAL IV PRN (08:30)
[2025-05-15] MEDS ORDERED: EPINEPHrine INJ 1 MG/ML 1ML AMP IM PRN (08:30)
[2025-05-15] MEDS: ACETAMINOPHEN 650MG PO PRIOR TO INFUSION PO ONE (08:42)
[2025-05-15] MEDS: diphenhydrAMINE 25MG PO PRIOR TO INFUSION PO ONE (08:42)
[2025-05-15] MEDS: IMMUNE GLOBULIN 10% 5 GM in IV 1 EA IV ONE (09:06)
[2025-05-15 09:30] VITALS: BP 110/66; O2SAT 97
[2025-05-15] MEDS: IMMUNE GLOBULIN 10% 10 GM in IV 1 EA IV ONE (09:48)
[2025-05-15 10:00] VITALS: BP 112/58; O2SAT 98
[2025-05-15 10:30] VITALS: BP 120/61; O2SAT 98
[2025-05-15] MEDS: IMMUNE GLOBULIN 10% 40 GM in IV 1 EA IV ONE (10:37)
[2025-05-15] MEDS: SODIUM CHLORIDE 0.9% INJ 10 ML SYR IV SCH (12:11)
[2025-05-15] MEDS: HEPARIN LOCK FLUSH 100 UNITS/ML 3 ML SYRINGE IV SCH (12:11)
== END 2025-05-15 12:15 ==
LOC: M INFU 08:20
PROVIDERS: ATTEND Specialist
DX: C90.00 Multiple myeloma not having achieved remission (principal); Z88.0 Allergy status to penicillin; Z88.1 Allergy status to other antibiotic agents; Z88.8 Allergy status to other drugs, medicaments and biological substances
CPT/HCPCS: 96365; 96366; 96375; J1459; J1642; J2919

== ENCOUNTER 2025-06-12 08:23 | Outpatient (CLI) | payer MEDICARE, BC ==
[~2025-06-12] VITALS: Ht 182.9 cm; Wt 109.0 kg
[~2025-06-12 08:23] MED LIST changes: +ALBUTEROL SULFATE 2.5 MG/0.5 ML INH CONCENTRATE NEB SOLN INH PRN; +EPINEPHrine INJ 1 MG/ML 1ML AMP IM PRN; +NS (Normal Saline) 0.9% 1,000 ML IV SCH; +diphenhydrAMINE 50 MG/ML VIAL IV PRN
[2025-06-12 08:35] VITALS: BP 130/84; O2SAT 97
[2025-06-12] MEDS: IMMUNE GLOBULIN 10% 40 GM in IV 1 EA IV ONE (09:21)
[2025-06-12] MEDS: IMMUNE GLOBULIN 10% 5 GM in IV 1 EA IV ONE (09:22)
[2025-06-12] MEDS: IMMUNE GLOBULIN 10% 10 GM in IV 1 EA IV ONE (09:23)
[2025-06-12] MEDS: ACETAMINOPHEN 650MG PO PRIOR TO INFUSION PO ONE (09:25)
[2025-06-12] MEDS: diphenhydrAMINE 25MG PO PRIOR TO INFUSION PO ONE (09:25)
[2025-06-12 10:00] VITALS: BP 137/89; O2SAT 98
[2025-06-12] MEDS ORDERED: SODIUM CHLORIDE 0.9% INJ 10 ML SYR IV PRN (10:20)
[2025-06-12 10:30] VITALS: BP 119/66; O2SAT 99
[2025-06-12 11:00] VITALS: BP 120/69; O2SAT 98
[2025-06-12] MEDS: HEPARIN LOCK FLUSH 100 UNITS/ML 3 ML SYRINGE IV PRN (12:30)
[2025-06-12 12:45] VITALS: BP 135/71; O2SAT 100
== END 2025-06-12 12:55 ==
LOC: M INFU 08:23
PROVIDERS: ATTEND Specialist
DX: C90.00 Multiple myeloma not having achieved remission (principal); Z88.0 Allergy status to penicillin; Z88.1 Allergy status to other antibiotic agents; Z88.8 Allergy status to other drugs, medicaments and biological substances
CPT/HCPCS: 96365; 96366; 96375; J1459; J1642

== ENCOUNTER → 2025-07-17 | Outpatient (CLI) | payer MEDICARE, BC ==
[~2025-07-17] MED LIST changes: -ALBUTEROL SULFATE 2.5 MG/0.5 ML INH CONCENTRATE NEB SOLN INH PRN; -EPINEPHrine INJ 1 MG/ML 1ML AMP IM PRN; -NS (Normal Saline) 0.9% 1,000 ML IV SCH; -PROC5TAB57; -PROC5TAB57 PO; +PROC5TAB81; +PROC5TAB81 PO; -diphenhydrAMINE 50 MG/ML VIAL IV PRN
== END ==
LOC: M WUC 11:39
PROVIDERS: ATTEND Family Medicine
DX: R05.9 Cough, unspecified (principal)

== ENCOUNTER 2025-08-21 08:35 | Outpatient (CLI) | payer MEDICARE, BC ==
[~2025-08-21] VITALS: Ht 182.9 cm; Wt 109.0 kg
[2025-08-21 08:35] VITALS: BP 102/55; O2SAT 96
[~2025-08-21 08:35] MED LIST changes: +ALBUTEROL SULFATE 2.5 MG/0.5 ML INH CONCENTRATE NEB SOLN INH PRN; -BACTDSTA PO; +EPINEPHrine INJ 1 MG/ML 1ML AMP IM PRN; +MUCI1TAB16 PO; +NS (Normal Saline) 0.9% 1,000 ML IV SCH; +SULF-8 PO; +diphenhydrAMINE 50 MG/ML VIAL IV PRN
[2025-08-21] MEDS: diphenhydrAMINE 25MG PO PRIOR TO INFUSION PO ONE (08:53)
[2025-08-21] MEDS: ACETAMINOPHEN 650MG PO PRIOR TO INFUSION PO ONE (08:53)
[2025-08-21] MEDS: IMMUNE GLOBULIN 10% 5 GM in IV 1 EA IV ONE (08:56)
[2025-08-21] MEDS: IMMUNE GLOBULIN 10% 40 GM in IV 1 EA IV ONE (08:57)
[2025-08-21] MEDS: IMMUNE GLOBULIN 10% 10 GM in IV 1 EA IV ONE (08:58)
[2025-08-21 09:30] VITALS: BP 114/60; O2SAT 99
[2025-08-21 10:00] VITALS: BP 118/58; O2SAT 99
[2025-08-21 10:30] VITALS: BP 120/66; O2SAT 100
[2025-08-21 11:30] VITALS: BP 127/70; O2SAT 100
[2025-08-21] MEDS: SODIUM CHLORIDE 0.9% INJ 10 ML SYR IV PRN (12:17)
[2025-08-21] MEDS: HEPARIN LOCK FLUSH 100 UNITS/ML 3 ML SYRINGE IV PRN (12:17)
[2025-08-21 12:25] VITALS: BP 112/58; O2SAT 97
[2025-08-22] MEDS ORDERED: SODIUM CHLORIDE 0.9% INJ 10 ML SYR IV SCH (09:00)
[2025-08-22] MEDS ORDERED: HEPARIN LOCK FLUSH 100 UNITS/ML 3 ML SYRINGE IV SCH (09:00)
== END 2025-08-21 12:25 ==
LOC: M INFU 08:35
PROVIDERS: ATTEND Specialist
DX: C90.00 Multiple myeloma not having achieved remission (principal); Z88.0 Allergy status to penicillin; Z88.1 Allergy status to other antibiotic agents; Z88.8 Allergy status to other drugs, medicaments and biological substances
CPT/HCPCS: 96365; 96366; 96375; J1459; J1642; J2919